=== PATIENT | female | born 1930 | race Caucasian/White ===

== ENCOUNTER 2017-11-02 08:32 | Inpatient (IN) ==
[2017-11-02] MEDS ORDERED: FentaNYL 100 MCG/2 ML INJECTION IVP ONE (08:44)
--- NOTE | 2017-11-02 08:45 | Emergency Department Report ---
General Adult HPI - General Stated complaint: fall Time Seen by Provider: 11/02/17 08:36 Source: patient, EMS, other ([place]. [place]) Mode of arrival: EMS Limitations: other (Dementia) - History of Present Illness HPI narrative: 87-year-old female presents to the emergency department with a chief complaint of an unwitnessed fall while getting out of bed landing on her right hip. Patient has a history of dementia and is at her baseline mental status be alert and oriented to self. She complains of pain in the right hip. Pain is moderate. Pain is dull. No radiation. Pain improves with rest and positioning. She denies any other injuries. No other complaints or associated symptoms. She was at her care facility when the incident occurred. Symptoms have been persistent in nature since onset. - Related Data Home Medications Medication Instructions Recorded Confirmed Potassium Chloride 10 meq PO DAILY #0 12/02/14 11/02/17 Aspirin [Aspirin EC] 81 mg PO DAILY 09/12/17 11/02/17 Cholecalciferol (Vitamin D3) 1,000 unit PO DAILY 09/12/17 11/02/17 [Vitamin D3] Fluticasone Nasal [place] [Flonase] 1 spray EA NOSTRIL DAILY 09/12/17 11/02/17 Furosemide [Lasix] 10 mg PO DAILY 09/12/17 11/02/17 Lisinopril [Prinivil] 5 mg PO BID 09/12/17 11/02/17 Polyvinyl Alcohol [Artificial 1 drop OP TID PRN 09/12/17 11/02/17 Tears] Vit C/E/Zn/Coppr/Lutein/Zeaxan 1 cap PO BID 09/12/17 11/02/17 [Preservision Areds 2 Softgel] Prilosec OTC (Omeprazole 20 mg PO DAILY PRN 09/25/17 11/02/17 magnesium) 20 mg tablet,delayed release Mirtazapine [Remeron] 7.5 mg PO HS 11/02/17 11/02/17 Ondansetron Tab [Zofran Po] 4 mg PO PRN 11/02/17 Vit A/Vit C/Vit E/Zinc/Copper 1 tab PO BID 11/02/17 11/02/17 [Preservision Areds Tablet] Allergies Allergy/AdvReac Type Severity Reaction Status Date / Time ceftriaxone [From Rocephin] Allergy Verified 11/02/17 09:28 diphenhydramine Allergy Verified 11/02/17 09:28 [From Benadryl] levofloxacin [From Levaquin] Allergy Verified 11/02/17 09:28 niacin Allergy Verified 11/02/17 09:28 Sulfa (Sulfonamide Allergy Verified 11/02/17 09:28 Antibiotics) Review of Systems Limitations: ROS unobtainable due to patient's medical condition [facility] Patient Stated Medical History Dementia Yes Macular Degeneration Yes Cardiac Arrhythmia Yes Congestive Heart Failure Yes Hypertension Yes Other Cardiology Yes: hyperlipidemia, cardiomegaly Pneumonia Yes Other Yes: disorder of kidney and ureter Anemia Yes Depression Yes: [facility] Medical History (Last Reviewed 08/26/17 @ 09:05 by BOGDAN Mensah) Dementia with behavioral disturbance (Chronic Medical) Iron deficiency anemia (Chronic Medical) Allergic rhinitis (Chronic Medical) LVH (left ventricular hypertrophy) (Chronic Medical) Hypertension (Chronic Medical) Acute cystitis without hematuria (Acute Medical) 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 Left ear surgery. [facility] IOLI 2010 Family History: Family History (Last Reviewed 08/26/17 @ 09:05 by BOGDAN Mensah) Father , CAD - 60 Coronary artery disease Mother , 69 - Diabetes Diabetes - Social History Smoking status: Never smoker Substance use type: does not use Alcohol intake frequency: does not drink Physical Exam - Limitations Limitations: other (dementia) - General General appearance: alert, in no apparent distress - Normal Exams: Head:: Normocephalic without trauma Eyes:: Pupils are PERRLA w/ EOMI, No scleral icterus, irritation, or foreign bodies noted ENMT:: No facial trauma, nasal exudates, pharyngeal erythema, or exudates are noted Dental: No fractured, loose, or missing teeth noted Neck:: Full range of motion (no midline tenderness or deformity of the cervical spine.), without adenopathy, JVD, bruits or thyromegaly Chest/Respirations:: Clear all brooks, with good airflow, and symmetry bilaterally Cardiovascular:: Regular rate and rhythm, without murmur or gallop, Pulses 2+ all extremities, capillary refill, <2 seconds all extremities Abdomen:: Bowel sounds positive, soft, non-tender, non-distended, no hepatosplenomegaly, masses or bruits noted Lymphatic:: No lymphadenopathy, or lymphedema noted Musculoskeletal:: No tenderness (R Hip - generalized tenderness to palpation. Decreased range of motion secondary to pain. Pulses intact. Sensation intact. Capillary refill less than 2. No erythema or edema. No other tenderness in the left lower extremity. All other extremities are unremarkable.), or deformity noted (back no midline tenderness or deformity to the thoracic/ lumbar spine. ), good range of motion, all extremities Integumentary:: No rashes, hives, or bruising noted, hair and nails, without abnormality Neurological:: Patient is alert (alert and oriented times one. No focal deficit. At baseline mental status.) Course Vital Signs Temperature 98.0 F 11/02/17 08:32 Pulse Rate 85 11/02/17 08:32 Respiratory Rate 18 11/02/17 08:32 Blood Pressure 216/100 H 11/02/17 08:32 Pulse Oximetry 93 11/02/17 08:32 Temperature 97.3 F 11/02/17 10:47 Pulse Rate 92 11/02/17 12:38 Respiratory Rate 16 11/02/17 11:07 Blood Pressure 204/92 H 11/02/17 11:07 Pulse Oximetry 97 11/02/17 11:07 Medical Decision Making - [facility] Narrative Medical decision making narrative: Labs / imaging were reviewed in detail with the patient and family and questions are answered. Patient was given analgesic pain medication within 1 hour of arrival to the emergency Department. Patient has a subcapital femoral neck fracture on the right. Patient is discussed with Dr. Alvarado orthopedic surgery who recommends making the patient nothing by mouth admission to the hospitalist service. Patient is discussed with Dr. Guallpa from the hospitalist service who agrees to accept the patient to her service. No further orders from accepting or consulting physicians were in agreement with the current plan of management. Patient is admitted to the hospital in improved condition. - Differential Diagnosis sprain, strain, fracture, dislocation, contusion - Lab Data Result diagrams: 11/02/17 08:55 11/02/17 08:55 Lab Results 11/02/17 11/02/17 11/02/17 Range/Units 08:54 08:55 08:55 WBC 6.3 (4.5-11.0) T/MM3 RBC 4.41 (4.00-5.20) M/MM3 Hgb 12.0 (12-16) GM/DL Hct 39.2 (36-46) % MCV 88.9 (80-100) UM3 MCH 27.2 (26-34) UUG MCHC 30.6 L (31-37) GM/DL RDW Std Deviation 45.3 (36.9-50.2) FL Plt Count 208 (130-400) T/MM3 MPV 10.4 (9.4-12.4) UM3 Immature Gran % (Auto) 0.8 H (0.0-0.5) % Neut % (Auto) 73.0 H (33-66) % Lymph % (Auto) 17.4 L (23-45) % [place] % (Auto) 5.9 (0-9.0) % Eos % (Auto) 2.1 (0-4) % Baso % (Auto) 0.8 (0-2) % Neut # (Auto) 4.6 (1.8-7.7) T/MM3 Lymph # (Auto) 1.1 (1-4.8) T/MM3 [place] # (Auto) 0.4 (0-0.8) T/MM3 Eos # (Auto) 0.1 (0-0.5) T/MM3 Baso # (Auto) 0.1 (0-0.2) T/MM3 Abs Immat Gran (auto) 0.05 H (0.00-0.03) T/MM3 Turbidity < 20 (0-20) Sodium 147 H (134-144) MEQ/L Potassium 4.0 (3.6-5) MEQ/L Chloride 107 (98-107) MEQ/L Carbon Dioxide 32 H (22-30) MEQ/L Anion Gap 8 (5-15) MEQ/L BUN 27.0 H (7-17) MG/DL Creatinine 1.0 (0.7-1.2) MG/DL GFR Calculation 53 BUN/Creatinine Ratio 27 H (6-26) RATIO Glucose 81 (65-110) MG/DL Calculated Osmolality 286 H (261-280) MOSM/KG Calcium 9.2 (8.4-10.2) MG/DL Total Bilirubin 0.30 (0.20-1.30) MG/DL Icterus Index < 2 (0-7) AST 26 (14-36) U/L ALT 22 (9-52) U/L Alkaline Phosphatase 67 (38-126) U/L Troponin I < 0.012 (0-0.12) ng/ml Total Protein 7.3 (6.3-8.2) G/DL Albumin 4.0 (3.5-5.0) G/DL Globulin 3.3 (2.4-3.6) G/DL Albumin/Globulin Ratio 1.2 (1.1-2.2) RATIO Specimen Hemolysis < 15 (0-25) Ur Collection Type Urine, void-cc/notcc Urine Color Yellow (YELLOW) Urine Clarity Clear Urine pH 7.0 (5.0-8.0) Ur Specific [place] 1.015 (1.015-1.025) Urine Protein Negative (NEGATIVE) Urine Glucose (UA) Negative (NEGATIVE) Urine Ketones Negative (NEGATIVE) Urine Occult Blood Negative (NEGATIVE) Urine Nitrate Negative (NEGATIVE) Urine Bilirubin Negative (NEGATIVE) Urine Urobilinogen 0.2 (NORMAL) EU/DL Ur Leukocyte Esterase Negative (NEGATIVE) Urinalysis Comment Microscopic not ind. - Radiology Data CT Head / C-spine: No acute processes. CT PELVIS: Right subcapital femoral neck fracture. Chest x-ray: No acute processes. Similar to comparison exam. - EKG Data EKG #1 EKG results narrative: Sinus rhythm with sinus arrhythmia. 64 bpm. No STEMI. Disposition Clinical Impression: Hip fracture requiring operative repair Qualifiers: Encounter type: initial encounter Fracture type: closed Laterality: right Qualified Code(s): S72.001A - Fracture of unspecified part of neck of right femur, initial encounter for closed fracture Disposition: 02 To [facility] Acute Care Condition: Stable Time of Disposition: 10:30 (Admit. Dr. Guallpa. ) - Seen By: physician
[2017-11-02] MEDS ORDERED: SALINE FLUSH 10ml SYRINGE IVF PRN (08:58)
[2017-11-02] MEDS ORDERED: FentaNYL 250 MCG/5 ML INJECTION IVP ONE (10:41)
[2017-11-02] MEDS ORDERED: ONDANSETRON 4 MG/2 ML INJECTION IVP PRN (11:29)
[2017-11-02] MEDS ORDERED: MORPHINE SULFATE 4mg INJECTION IVP PRN (11:29)
[2017-11-02] MEDS ORDERED: NS 1,000 ML IV SCH (11:30)
--- NOTE | 2017-11-02 12:29 | History & Physical Report ---
History of Present Illness Date: 11/02/17 Chief complaint: right hip fracture, fall HPI: Farnaz Brooke is a pleasantly confused 87-year-old female patient of Dr. Kieran Ocampo who has a known history of dementia. Due to her dementia, she is a poor historian. Prior medical records including ED records, EMS reports, PCP notes and nursing notes were thoroughly reviewed and contributed to her history. Her son is present at the bedside on exam and also contributes to her history. She currently resides at [facility] and sustained and unwitnessed fall this morning around 0730. She has chronic gait instability and is typically a 2 person assist. It is believed that she attempted to stand up on her own resulting in a fall and landed on her right side. Nursing reportedly heard her fall and found her on the floor with her walker nearby and on its side. She was unable to recall the fall and does not know if she hit her head or loss consciousness, but confusion and memory loss are not abnormal for her. She complained of pain but when asked where, she stated, "I don't know ". She denies any current headache, changes in vision, chest pain, shortness of breath, abdominal pain, nausea, vomiting or difficulty urinating. EMS transported to her [facility] for further evaluation. Upon arrival to the ED, blood pressure was elevated at 216/100. She has a known history of hypertension and it is believed that she had not received her morning medications prior to being assessed. Her blood pressure improved after receiving a total of 62.5 mcg of fentanyl for pain control. Imaging was obtained and revealed a right subcapital femoral neck fracture. Dr. Alvarado was consulted and recommended hospitalist admit and consult ortho. Dr. Guallpa was consulted and accepted her into inpatient status for further evaluation, IV pain control and surgical evaluation with anticipated surgical repair this afternoon. Her length of stay is expected to exceed more than 2 over nights. Labs in the ED were relatively unremarkable with the exception of hypernatremia (Na 147). UA was negative as well troponin. EKG revealed sinus arrhythmia with a rate of 64. CXR was reviewed by myself and revealed cardiomegaly without obvious focal infiltrate. Given her unwitnessed fall and possible head injury, CT head and C-spine were obtained and revealed no acute changes or fractures with chronic sinus disease and C4/5 and T1/2 listhesis noted. Review of Systems ROS unobtainable: due to mental status - Constitutional Constitutional: Present: chills (patient actively shaking on exam due to chills) , weakness. Absent: fever(s) - EENMT Eyes: Present: dry eye. Absent: photophobia Ears: Present: other (Hard of hearing; hearing loss left ear.). Absent: ear pain Nose: Absent: nosebleeds Mouth/Throat: Present: dry mouth. Absent: sore throat, sores, changes in swallowing - Cardiovascular Cardiovascular: Present: syncope (unknown), edema. Absent: chest pain, palpitations, dyspnea on exertion Vascular: Present: pedal edema. Absent: pallor of an extermity - Respiratory Respiratory: Present: cough. Absent: dyspnea, dyspnea on exertion, wheezing - Gastrointestinal Gastrointestinal: Absent: abdominal pain, diarrhea, nausea, vomiting - Genitourinary Genitourinary: Absent: dysuria, hematuria Menstruation: post menopausal - Musculoskeletal Musculoskeletal: Present: abnormal gait, deformity (right hip), limited range of motion (right leg), muscle weakness (generalized, chronic.) - Integumentary/Breasts Integumentary: Absent: rash, wounds - Neurological Neurological: Present: abnormal gait, confusion, frequent falls, memory loss, weakness (generalized). 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 Hypertension. Hyperlipidemia. LVH and cardiomegaly. CHF, unspecified. GERD. Iron deficiency anemia. Allergic rhinitis. 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 Macular degeneration. Chronic sinusitis. Generalized weakness. Gait instability - 2 person assist at baseline with walker. History of frequent falls. History of pneumonia. Surgical History: Tonsillectomy. Left ear surgery. Bilateral IOLI-2010. Family History Updates: Father - age 60 - CAD. Mother - age 69 - Diabetes. Son - alive age 59 - history of colon cancer, in remission. - Social History Smoking status: Never smoker Substance use type: does not use Alcohol intake frequency: does not drink Housing: [facility]) Household members: none () Current occupational status: retired Current residence: [facility] ([facility]) Social history: PCP - Dr. Ocampo. Medications Home Medications Medication Instructions Recorded Confirmed Type Potassium Chloride 10 meq PO DAILY #0 12/02/14 11/02/17 History Aspirin [Aspirin EC] 81 mg PO DAILY 09/12/17 11/02/17 History Cholecalciferol (Vitamin D3) 1,000 unit PO DAILY 09/12/17 11/02/17 History [Vitamin D3] Fluticasone Nasal [place] [Flonase] 1 spray EA NOSTRIL DAILY 09/12/17 11/02/17 History Furosemide [Lasix] 10 mg PO DAILY 09/12/17 11/02/17 History Lisinopril [Prinivil] 5 mg PO BID 09/12/17 11/02/17 History Polyvinyl Alcohol [Artificial 1 drop OP TID PRN 09/12/17 11/02/17 History Tears] Vit C/E/Zn/Coppr/Lutein/Zeaxan 1 cap PO BID 09/12/17 11/02/17 History [Preservision Areds 2 Softgel] Prilosec OTC (Omeprazole 20 mg PO DAILY PRN 09/25/17 11/02/17 History magnesium) 20 mg tablet,delayed release Mirtazapine [Remeron] 7.5 mg PO HS 11/02/17 11/02/17 History Ondansetron Tab [Zofran Po] 4 mg PO PRN 11/02/17 History Vit A/Vit C/Vit E/Zinc/Copper 1 tab PO BID 11/02/17 11/02/17 History [Preservision Areds Tablet] Allergies Allergy/AdvReac Type Severity Reaction Status Date / Time ceftriaxone [From Rocephin] Allergy Verified 11/02/17 09:28 diphenhydramine Allergy Verified 11/02/17 09:28 [From Benadryl] levofloxacin [From Levaquin] Allergy Verified 11/02/17 09:28 niacin Allergy Verified 11/02/17 09:28 Sulfa (Sulfonamide Allergy Verified 11/02/17 09:28 Antibiotics) Exam Vital Signs: Temperature 98.0 F 11/02/17 08:32 Pulse Rate 74 11/02/17 11:07 Respiratory Rate 16 02/11/18 11:07 Blood Pressure 204/92 H 11/02/17 11:07 Pulse Oximetry 97 11/02/17 11:07 Telemetry Rhythm: Sinus Dysrhythmia Comments: Patient is seen immediately upon her arrival to her room, #[id number], with her son at the bedside. She complains of pain but is unable to identify where. Exam is limited due to the patient's dementia. - Constitutional Present: no acute distress, well nourished, well developed, thin, cooperative - Routine HEENT Exam Head: Present: normocephalic, atraumatic. Absent: abrasion, laceration, hematoma Eye: Present: PERRL. Absent: conjunctival icterus ENT: Present: mucous membranes dry, oropharynx clear Comments: slightly hard of hearing. - Routine Neck Exam Present: supple, full ROM, trachea midline. Absent: tenderness - Routine Chest/Breast/Axilla Exam Chest wall: Absent: tenderness, pacemaker - Routine Respiratory Exam Present: decreased breath sounds, crackles (left basilar). Absent: accessory muscle use, dyspnea, respiratory distress, wheezes Comments: Oxygen was placed prior to arrival in room after patient received fentanyl for pain control. Currently breathing easily on room air without distress. Nursing noted occasional cough which family reports is new. - Routine Cardiovascular Exam Present: S1, S2, irregular rhythm - Routine Abdominal Exam Present: soft, normoactive bowel sounds, non distended, non tender. Absent: rebound, guarding - Routine Extremities Exam Present: edema (trace-1+ bilaterally), pulses intact Comments: tenderness to right hip with movement; limited ROM to right leg due to pain; N/ V intact. - Routine Back/Spine/Pelvis Exam Back/Spine: Absent: vertebral tenderness Comments: limited exam due to pain with ROM to her right hip. - Routine Skin Exam Present: intact, dry, warm. Absent: jaundice Comments: afebrile; patient noted to be shaking with chills on exam which improved with warm blanket as room was cool. - Routine Neurological Exam Present: alert (orientated to person only.), moving all extremities, hearing grossly intact, normal speech. Absent: oriented X3, sensory deficit, hemineglect, facial asymmetry - Routine Psychiatric Exam Present: cooperative Comments: confused, at baseline per family. Results - Labs CBC & Chem 7: 11/02/17 08:55 11/02/17 08:55 Assessment and Plan (1) Closed subcapital fracture of right femur Current visit: Yes Status: Acute (2) Unwitnessed fall Current visit: Yes Status: Acute (3) Hypernatremia Current visit: Yes Status: Acute Assessment and Plan: Assessment: 87-year-old pleasantly confused patient of Dr. Ocampo from [facility] who was admitted to Dr. Guallpa after being evaluated in the ED following an unwitnessed fall, resulting in a right subcapital femoral neck fracture and anticipated to under repair on 11/03/[address] Alvarado. Acute Medical Conditions: Right subcapital femoral neck fracture, acute - present on admission. Unwitnessed fall with possible head injury, acute. Hypernatremia (Na 147), acute - present on admission. 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 Hypertension. Hyperlipidemia. LVH and cardiomegaly. CHF, unspecified. GERD. Iron deficiency anemia. Allergic rhinitis. 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 Macular degeneration. Chronic sinusitis. Generalized weakness. Gait instability - 2 person assist at baseline with walker. History of frequent falls. History of pneumonia. Plan - 11/02/17 (Admission). Admit patient to inpatient to Dr. Guallpa for medical management of chronic conditions. Dr. Alvarado was consulted through the ED for orthopedic evaluation. Anticipate surgical repair of hip fracture on 11/03/17. Extensive review of records including medications from [facility] was performed. Will continue home medications. Given patient had unwitnessed fall with possible head injury, CT head and neck were obtained in ED and revealed no acute changes. Uncontrolled blood pressure in ED at 216/100 - unsure if patient received home lisinopril prior to arrival. Blood pressure improved with pain control. Continue to monitor blood pressure closely and will resume home lisinopril, Lasix and KCl. Monitor cardiac function closely with continuous pulse ox on telemetry given remote possibility of syncope. Fall more likely mechanical and secondary to poor safety awareness due to dementia and gait instability. Patient will need close supervision given dementia and poor safety awareness as she is at high risk for additional falls. Morphine 1-2mg PRN pain control. Monitor oximetry closely as she was noted to desat while in ED after receiving fentanyl. Oxygen as needed to maintain SAO2 > 90%, weaning as able. Patient does not use oxygen at home. Cough noted on admission. Patient remains afebrile and WBC stable (WBC 6.3). CXR unremarkable without focal infiltrate. Obtain respiratory panel and maintain respiratory precautions until resulted. Encourage incentive spirometry for pulmonary toileting. Patient on regular diet at [facility]. Will continue during hospitalization and make NPO after midnight on 11/03/11 in anticipation of surgery on 11/03/11. NS 100cc/ hr for hydration as clinical vascularly dry on exam with hypernatremia (Na 147). Patient receiving mighty shakes at [facility] TID. Will consult dietary for additional recommendations and continue dietary supplementation. Recheck CBC and BMP in AM to monitor blood counts, electrolytes and renal function. History of iron deficiency anemia. Hgb stable on admission (12.0). Will type and screen in AM in anticipation of surgery. Upon discharge, patient's care will be returned to her PCP, Dr. Ocampo. Patient wishes to be a DNR code status with paperwork on the chart. DVT Prophylaxis: SCD's GI Prophylaxis: Protonix - Time spent with patient Time with patient PN: 70 minutes - Physician Narrative Physician: Phyllis Guallpa MD Narrative: Date: 11/02/17 Time: 4:[address] Guallpa I reviewed this chart, the patient history, and the MINING ENGINEER[employer]IST's/PA's documented findings as above. We discussed and formulated the assessment and plan as above with the additions below. Patient was seen this afternoon in her room accompanied by members including her son JOHN. Patient has a history of dementia and lives in a fci. She had an unwitnessed fall today, but the nurse heard her fall. Taken to the emergency room and found to have a right subcapital fracture. She is narcotics and is mildly somnolent and confused. She is confused at baseline. She complains of some hip pain now. She denies any other pain. She denies shortness of breath. She is on 1 L oxygen sat 97%. She is not a good historian due to acute on chronic condition. On exam she is drowsy but arousable. HEENT reveals sclerae. Oropharynx is moist , supple. Chest is clear to auscultation anteriorly. Cardiovascular reveals a regular rate. Lungs sounds. Extremities reveal no edema. Skin is warm and dry. Comprehensive metabolic profile was essentially normal other than sodium of 147. Troponin is normal. UA is normal. CBC is essentially normal. Respiratory viral panel was positive for wright virus. EKG reveals sinus rhythm with sinus arrhythmia and probable LVH. She does carry a history of LVH. Impression Right subcapital hip fracture Dementia with some acute encephalopathy likely secondary to pain medication History of hypertension with markedly elevated blood pressure, likely secondary to pain-improved with Protonix Acute wright virus upper respiratory infection Chronic sinusitis Chronic CHF with LVH Plan Dr. Alvarado was consulted and plans on surgery tomorrow afternoon. Patient is DO NOT RESUSCITATE per family. They state she is ready to go. We'll change IV fluids to half-normal saline with 20 of potassium to run at 50 an hour Repeat CBC and basic metabolic profile tomorrow. Discussed with family the patient is at increased risk for perioperative complications with her advanced age, dementia acute respiratory infection. They state they do understand and states she is "ready to go". They would like to proceed with surgery for pain control, and hopefully to get her previous level of activity. Hospital Course Summary Disclaimer: The visit summary below is not to be considered part of the above Progress Note. Hospital Course: Plan - 11/02/17 (Admission). Admit patient to inpatient to Dr. Guallpa for medical management of chronic conditions. Dr. Alvarado was consulted through the ED for orthopedic evaluation. Anticipate surgical repair of hip fracture on 11/03/17. Extensive review of records including medications from [facility] was performed. Will continue home medications. Given patient had unwitnessed fall with possible head injury, CT head and neck were obtained in ED and revealed no acute changes. Uncontrolled blood pressure in ED at 216/100 - unsure if patient received home lisinopril prior to arrival. Blood pressure improved with pain control. Continue to monitor blood pressure closely and will resume home lisinopril, Lasix and KCl. Monitor cardiac function closely with continuous pulse ox on telemetry given remote possibility of syncope. Fall more likely mechanical and secondary to poor safety awareness due to dementia and gait instability. Patient will need close supervision given dementia and poor safety awareness as she is at high risk for additional falls. Morphine 1-2mg PRN pain control. Monitor oximetry closely as she was noted to desat while in ED after receiving fentanyl. Oxygen as needed to maintain SAO2 > 90%, weaning as able. Patient does not use oxygen at home. Cough noted on admission. Patient remains afebrile and WBC stable (WBC 6.3). CXR unremarkable without focal infiltrate. Obtain respiratory panel and maintain respiratory precautions until resulted. Encourage incentive spirometry for pulmonary toileting. Patient on regular diet at [facility]. Will continue during hospitalization and make NPO after midnight on 11/03/11 in anticipation of surgery on 11/03/11. NS 100cc/ hr for hydration as clinical vascularly dry on exam with hypernatremia (Na 147). Patient receiving mighty shakes at [facility] T[facility]. Will consult dietary for additional recommendations and continue dietary supplementation. Recheck CBC and BMP in AM to monitor blood counts, electrolytes and renal function. History of iron deficiency anemia. Hgb stable on admission (12.0). Will type and screen in AM in anticipation of surgery. Upon discharge, patient's care will be returned to her PCP, Dr. Ocampo. Patient wishes to be a DNR code status with paperwork on the chart.
[2017-11-02] MEDS ORDERED: SYSTANE EYE DROPS 0.7ml EACH EYE PRN (13:09)
[2017-11-02] MEDS: FLUTICASONE NASAL SPRAY 50mcg EA NOSTRIL SCH (14:45)
[2017-11-02] MEDS: PANTOPRAZOLE 40 MG INJECTION IVP SCH (14:46)
[2017-11-02] MEDS: ASPIRIN *EC* 81 MG TABLET PO SCH (14:46)
[2017-11-02] MEDS: LISINOPRIL 5 MG TABLET PO SCH (15:13)
[2017-11-02] MEDS: FUROSEMIDE 20 MG TABLET PO SCH (15:13)
[2017-11-02] MEDS: MULTI-VIT + MINERAL (Opti-gen) TABLET PO SCH ×2 (15:13→20:03)
[2017-11-02] MEDS: MORPHINE SULFATE 2mg INJECTION IVP PRN ×3 (16:37→22:03)
[2017-11-02] MEDS: 1/2 NS with KCL 20mEq 1,000 ML IV SCH (18:19)
[2017-11-02] MEDS: MIRTAZAPINE 15 MG TABLET PO SCH (20:03)
[2017-11-02] MEDS: HALOPERIDOL 5 MG/ML INJECTION IVP PRN (23:08)
[2017-11-03] MEDS ORDERED: ACETAMINOPHEN 325 MG TABLET PO PRN (05:36)
[2017-11-03] MEDS: ACETAMINOPHEN 325 MG TABLET PO PRN (06:01)
--- NOTE | 2017-11-03 07:23 | XRay Report ---
Indication: Fall today with right hip pain PROCEDURE: XR pelvis w/ 2 view RT hip: Encounter: Initial Comparison: None Findings: Is a mildly displaced subcapital fracture of the right femoral neck. No additional acute fracture or dislocation seen. Mild bony demineralization. Mild degenerative change in the lower lumbar spine and left hip. Impression: Posttraumatic subcapital right femoral neck fracture. .
--- NOTE | 2017-11-03 07:24 | XRay Report ---
Indication: Hip fx PROCEDURE: XR chest 1V: Encounter: Initial Comparison: 09/12/2017 Findings: Persistent or recurrent hazy left basilar airspace opacity and small left effusion. Right lung is grossly clear. No pneumothorax. Heart size, pulmonary vascularity and mediastinal contours are stable. Degenerative change in the left shoulder. Impression: Stable appearance of the chest with left basilar atelectasis and fluid. .
--- NOTE | 2017-11-03 07:25 | CT Scan Report ---
Indication: R Hip Pain PROCEDURE: CT pelvis wo con: Encounter: Initial Comparison: None Technique: Axial noncontrast CT imaging through the pelvis with coronal and sagittal two-dimensional reformats. Automated Exposure Control and Iterative Reconstruction dose reducing techniques were utilized. Findings: Subcapital right femoral neck fracture mildly displaced. No additional acute fractures seen. Bony demineralization. Mild osteoarthritis in the left hip. Degenerative change in the facet joints of the visualized lower lumbar spine. Soft tissues of the pelvis are grossly unremarkable. No focal hematoma or fluid collection. Impression: Subcapital right femoral neck fracture. There is a preliminary report by [facility] [employer]. .
--- NOTE | 2017-11-03 07:25 | CT Scan Report ---
Indication: unwitnessed fall PROCEDURE: CT cervical spine wo con: Encounter: Initial Comparison: None Technique: Axial CT images through the cervical spine were performed without contrast. Coronal and sagittal reformatted images were also obtained. Automated Exposure Control and Iterative Reconstruction dose reducing techniques were utilized. FINDINGS: The alignment of the cervical spine shows minimal degenerative grade 1 anterolisthesis of C4 on C5 and C7 on T1. Multilevel degenerative changes are present. There is no evidence of acute fracture or subluxation of the cervical spine. The atlantoaxial articulation, dens, and upper cervical spine demonstrate no subluxation. The paraspinal soft tissues and spinal canal appear unremarkable. IMPRESSION: No acute traumatic abnormality of the cervical spine. There is a preliminary report by [facility]. .
--- NOTE | 2017-11-03 07:26 | CT Scan Report ---
Indication: unwitnessed fall PROCEDURE: CT head/brain wo con: Encounter: Initial Comparison: 09/12/2017 Technique: Axial CT images through the head were performed without contrast. Iterative Reconstruction dose reducing technique was utilized. FINDINGS: Moderate to severe generalized atrophy. The ventricles are of normal size, shape, and configuration for the patient's age. There is no evidence of acute intracranial hemorrhage, midline displacement, or mass effect. There are numerous areas of low attenuation in the white matter which most likely represent changes of chronic microvascular ischemia. The CT attenuation of the brain parenchyma is otherwise normal within the cerebellum, brain stem, and cerebral hemispheres. The tympanic cavities and mastoid air cells are free of appreciable disease. There are no definite fractures of the skull base, calvarium, or visualized portion of the midface. IMPRESSION: No CT evidence of acute traumatic intracranial injury. There is a preliminary report by [facility]. .
--- NOTE | 2017-11-03 08:39 | XRay Report ---
EXAM: XR chest 1V COMPARISON: 11/02/2017. HISTORY: fever, mild hypoxia . FINDINGS: The cardiomediastinal silhouette is within limits of normal. The pulmonary vascularity appears unremarkable. Ill-defined and linear opacity is seen at the left lung base which may be related to atelectasis resident than infiltrate. There is minimal blunting of the costophrenic angles. There is no evidence for a pneumothorax. Degenerative changes of the right shoulder is again noted. IMPRESSION: 1. Mild cardiomegaly. 2. Persistent left basilar atelectatic changes. [place] [facility] [facility] [place]
--- NOTE | 2017-11-03 08:42 | XRay Report ---
EXAM: XR lumbar spine 2-3V COMPARISON: None available. HISTORY: lumbar pain after fall . Fall yesterday FINDINGS: Three views of the lumbar spine were obtained. There is dextroconvex scoliosis of the lumbar spine. The lumbar vertebral bodies appear well aligned otherwise. Vertebral body heights are thought to be maintained. Endplate sclerosis and spurring and disc space narrowing is noted at L1-2 and L2-3 and L5-S1. There may be mild disc space narrowing and endplate sclerosis and spurring at the left L3-4 and L4-5 levels. The pedicles and spinous processes are intact and are well aligned. IMPRESSION: 1. Dextroconvex scoliosis. 2. Disc space narrowing and endplate sclerosis and spurring from L1-2 through L5-S1 as described above. 3. No definite evidence for acute compression fracture deformity is identified. LOCATION OF DICTATION: [facility] .
[2017-11-03 09:02] VITALS: BMI 22.2
[2017-11-03] MEDS: PANTOPRAZOLE 40 MG INJECTION IVP SCH (09:15)
[2017-11-03] MEDS: MULTI-VIT + MINERAL (Opti-gen) TABLET PO SCH ×2 (09:20→22:27)
[2017-11-03] MEDS: LISINOPRIL 5 MG TABLET PO SCH (09:20)
[2017-11-03] MEDS: FLUTICASONE NASAL SPRAY 50mcg EA NOSTRIL SCH (09:20)
[2017-11-03] MEDS: FUROSEMIDE 20 MG TABLET PO SCH (09:20)
--- NOTE | 2017-11-03 10:16 | Progress Note ---
- Date 11/03/17 Subjective: The patient was seen this morning in her room. Multiple family members were present. She was lying on her left side sleeping. Her family states she was agitated and in some pain last night and received Haldol and morphine last evening. They state she's been more comfortable since turning to her left side earlier this morning. She awakens to voice but does not attempt to answer questions at this time, she does appear groggy. She did have a fever up to 101.8 earlier this morning. On recheck was 100.1. She is too drowsy to answer any questions this morning. Objective Vital signs: Temperature 100.1 F 11/03/17 08:00 Pulse Rate 88 11/03/17 08:00 Respiratory Rate 17 11/03/17 08:00 Blood Pressure 128/56 11/03/17 08:00 Pulse Oximetry 97 11/03/17 08:00 Height/Weight/BMI: Height 1.57 m Weight 55.2 kg Body Mass Index 22.2 Comments: MAXIMUM TEMPERATURE 101.8, current temperature 100.1. Heart rate 88, blood pressure 120/56, respirations 17, O2 sat 97% on 1 L GEN-drowsy but arousable, unable to answer questions this morning, does not appear in distress. Breathing comfortably. No cough during my exam CV-regular rate and rhythm CHEST-clear to auscultation posteriorly ABD-soft, nontender with positive bowel sounds -Steven in place with good urine output EXT-no edema NEURO-drowsy, confused, has baseline dementia likely worsened with fever and morphine SKIN-warm and dry Results - Labs CBC & Chem 7: 11/03/17 04:40 11/03/17 04:40 Labs: Lactate was 0.7 Neutrophils 87%, bands 3% Microbiology Results: Microbiology 11/03/17 07:35 Peripheral/Iv Start Blood Culture - Preliminary Culture Initiated - Results Pending 11/03/17 07:33 Peripheral/Iv Start Blood Culture - Preliminary Culture Initiated - Results Pending - Impressions Chest x-ray on my read and per radiology shows mild cardiomegaly and a persistent left basilar atelectatic changes. Left basilar airspace opacity was present on admission and also on 09/12/2017 and is unchanged. Assessment and Plan (1) Closed subcapital fracture of right femur Current visit: Yes Status: Acute (2) Unwitnessed fall Current visit: Yes Status: Acute (3) Hypernatremia Current visit: Yes Status: Acute Assessment and Plan: Assessment: 87-year-old pleasantly confused patient of Dr. Ocampo from [facility] who was admitted to Dr. Guallpa after being evaluated in the ED following an unwitnessed fall, resulting in a right subcapital femoral neck fracture and anticipated to under repair on 11/03/[address] Alvarado. Acute Medical Conditions: Right subcapital femoral neck fracture, acute - present on admission. Unwitnessed fall with possible head injury, acute. 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 Hypertension. Hyperlipidemia. LVH and cardiomegaly. CHF, unspecified. GERD. Iron deficiency anemia. Allergic rhinitis. 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 Macular degeneration. Chronic sinusitis. Generalized weakness. Gait instability - 2 person assist at baseline with walker. History of frequent falls. History of pneumonia. Plan - 11/03/17 Patient had a fever today up to 101.8. This may be secondary to Zaldivar virus. Blood cultures were obtained and lactate was obtained and was 0.7. Repeat lactate is pending. Chest x-ray shows a persistent left basilar infiltrate/ atelectasis that was present in August 2017. On exam, lungs are clear. I do not think she has pneumonia at this time, her fever is likely secondary to Zaldivar virus. Urinalysis was normal yesterday. We'll continue to monitor closely. Continue cautious IV fluids. Continue Haldol if needed for agitation. Plan for surgery later today for hip fracture repair Blood pressure is better controlled today. Family updated this morning. DVT Prophylaxis: SCD's Resuscitation Status: Do Not Resuscitate - Time spent with patient Time with patient PN: 30 minutes - Physician Narrative Narrative: Date: 11/03/17 Time: 1013 Hospital Course Summary Disclaimer: The visit summary below is not to be considered part of the above Progress Note. Hospital Course: Plan - 11/02/17 (Admission). Admit patient to inpatient to Dr. Guallpa for medical management of chronic conditions. Dr. Alvarado was consulted through the ED for orthopedic evaluation. Anticipate surgical repair of hip fracture on 11/03/17. Extensive review of records including medications from [facility] was performed. Will continue home medications. Given patient had unwitnessed fall with possible head injury, CT head and neck were obtained in ED and revealed no acute changes. Uncontrolled blood pressure in ED at 216/100 - unsure if patient received home lisinopril prior to arrival. Blood pressure improved with pain control. Continue to monitor blood pressure closely and will resume home lisinopril, Lasix and KCl. Monitor cardiac function closely with continuous pulse ox on telemetry given remote possibility of syncope. Fall more likely mechanical and secondary to poor safety awareness due to dementia and gait instability. Patient will need close supervision given dementia and poor safety awareness as she is at high risk for additional falls. Morphine 1-2mg PRN pain control. Monitor oximetry closely as she was noted to desat while in ED after receiving fentanyl. Oxygen as needed to maintain SAO2 > 90%, weaning as able. Patient does not use oxygen at home. Cough noted on admission. Patient remains afebrile and WBC stable (WBC 6.3). CXR unremarkable without focal infiltrate. Obtain respiratory panel and maintain respiratory precautions until resulted. Encourage incentive spirometry for pulmonary toileting. Patient on regular diet at [facility]. Will continue during hospitalization and make NPO after midnight on 11/03/11 in anticipation of surgery on 11/03/11. NS 100cc/ hr for hydration as clinical vascularly dry on exam with hypernatremia (Na 147). Patient receiving mighty shakes at [facility] TID. Will consult dietary for additional recommendations and continue dietary supplementation. Recheck CBC and BMP in AM to monitor blood counts, electrolytes and renal function. History of iron deficiency anemia. Hgb stable on admission (12.0). Will type and screen in AM in anticipation of surgery. Upon discharge, patient's care will be returned to her PCP, Dr. Ocampo. Patient wishes to be a DNR code status with paperwork on the chart. Plan - 11/03/17 Patient had a fever today up to 101.8. This may be secondary to Zaldivar virus. Blood cultures were obtained and lactate was obtained and was 0.7. Repeat lactate is pending. Chest x-ray shows a persistent left basilar infiltrate/ atelectasis that was present in August 2017. On exam, lungs are clear. I do not think she has pneumonia at this time, her fever is likely secondary to Zaldivar virus. Urinalysis was normal yesterday. We'll continue to monitor closely. Continue cautious IV fluids. Continue Haldol if needed for agitation. Plan for surgery later today for hip fracture repair Blood pressure is better controlled today. Family updated this morning.
[2017-11-03] MEDS: MORPHINE SULFATE 2mg INJECTION IVP PRN ×2 (11:00→23:49)
[2017-11-03] MEDS: 1/2 NS with KCL 20mEq 1,000 ML IV SCH ×2 (13:00→18:52)
--- NOTE | 2017-11-03 13:51 | Orthopedic Consult Note ---
Orthopedic Consultation HPI - Consultation Info Consult Date: 11/03/17 Attending Physician: Phyllis Guallpa MD Consult Reason: fracture - History of Present Illness 87 yo lady who resides at [facility]. She sustained and unwitnessed fall this morning around 0730. She has chronic gait instability and is typically a 2 person assist. It is believed that she attempted to stand up on her own resulting in a fall and landed on her right side. CT scan and xrays confirm a subcapital fx of the right hip. She is admitted by the hospitalist service and we are consulted for medical management. Review of Systems ROS unobtainable: due to dementia, other (See Dr Guallpa's dictation.) [facility] Medical History (Last Reviewed 08/26/17 @ 09:05 by BOGDAN Mensah) Dementia with behavioral disturbance (Chronic Medical) Iron deficiency anemia (Chronic Medical) Allergic rhinitis (Chronic Medical) LVH (left ventricular hypertrophy) (Chronic Medical) Hypertension (Chronic Medical) Acute cystitis without hematuria (Acute Medical) 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 Left ear surgery. Bilateral IOLI-2010. Family History: Family History (Last Reviewed 08/26/17 @ 09:05 by BOGDAN Mensah) Father , CAD - 60 Coronary artery disease Mother , 69 - Diabetes Diabetes - Social History Smoking status: Never smoker Current residence: [facility] ([facility]) Medications Home Medications Medication Instructions Recorded Confirmed Type Potassium Chloride 10 meq PO DAILY #0 12/02/14 11/02/17 History Aspirin [Aspirin EC] 81 mg PO DAILY 09/12/17 11/02/17 History Cholecalciferol (Vitamin D3) 1,000 unit PO DAILY 09/12/17 11/02/17 History [Vitamin D3] Fluticasone Nasal [place] [Flonase] 1 spray EA NOSTRIL DAILY 09/12/17 11/02/17 History Furosemide [Lasix] 10 mg PO DAILY 09/12/17 11/02/17 History Lisinopril [Prinivil] 5 mg PO BID 09/12/17 11/02/17 History Polyvinyl Alcohol [Artificial 1 drop OP TID PRN 09/12/17 11/02/17 History Tears] Vit C/E/Zn/Coppr/Lutein/Zeaxan 1 cap PO BID 09/12/17 11/02/17 History [Preservision Areds 2 Softgel] Prilosec OTC (Omeprazole 20 mg PO DAILY PRN 09/25/17 11/02/17 History magnesium) 20 mg tablet,delayed release Mirtazapine [Remeron] 7.5 mg PO HS 11/02/17 11/02/17 History Ondansetron Tab [Zofran Po] 4 mg PO PRN 11/02/17 History Vit A/Vit C/Vit E/Zinc/Copper 1 tab PO BID 11/02/17 11/02/17 History [Preservision Areds Tablet] Allergies Allergy/AdvReac Type Severity Reaction Status Date / Time ceftriaxone [From Rocephin] Allergy Verified 11/03/17 06:23 diphenhydramine Allergy Verified 11/03/17 06:23 [From Benadryl] levofloxacin [From Levaquin] Allergy Verified 11/03/17 06:23 niacin Allergy Verified 11/03/17 06:23 Sulfa (Sulfonamide Allergy Verified 11/03/17 06:23 Antibiotics) Orthopedic Exam Vital signs: Temperature 97.3 F 11/03/17 12:15 Pulse Rate 90 11/03/17 12:15 Respiratory Rate 14 11/03/17 12:15 Blood Pressure 175/79 H 11/03/17 12:15 Pulse Oximetry 94 11/03/17 12:15 - Constitutional General Appearance: Present: alert. Absent: orientated x1 - Respiratory Exam Present: non-labored - Cardiovascular Exam Present: pedal pulses intact - Extremities Exam Present: edema (trace-1+ bilaterally), pulses intact. Absent: calf tenderness - Hip Exam right Hip Exam: Present: unequal leg length, tender over trochanter, abnormal rotation , painful PROM - Integumentary Exam Present: pink, warm, dry - Neurological Exam Present: no deficits - Psychiatric Exam Present: alert. Absent: oriented - Labs Result Diagrams: 11/03/17 04:40 11/03/17 04:40 Abnormal lab results 11/03/17 11/03/17 Range/Units 04:40 04:40 WBC 14.8 H D (4.5-11.0) T/MM3 Hgb 11.8 L (12-16) GM/DL Neutrophils % (Manual) 87.0 H (33-66) % Lymphocytes % (Manual) 6.0 L (23-45) % Neutrophils # (Manual) 12.9 H (1.8-7.7) T/MM3 Lymphocytes # (Manual) 0.9 L (1-4.8) T/MM3 BUN 19.0 H (7-17) MG/DL Glucose 115 H (65-110) MG/DL H & H 11/03/17 Range/Units 04:40 Hgb 11.8 L (12-16) GM/DL Hct 37.7 (36-46) % Impression and Recommendation (1) Closed subcapital fracture of right femur Current visit: Yes Qualifiers: Encounter type: initial encounter Qualified Code(s): S72.011A - Unspecified intracapsular fracture of right femur, initial encounter for closed fracture Status: Acute Dr Alvarado has met with the pt and family to discuss the nature of her injury and recommended treatment. Will plan on a zana arthroplasty of the right hip. Risk vs benefits, possible complications and expected course were all discussed. Stay expected to be > 2 midnights. Hospital Course Summary Disclaimer: The visit summary below is not to be considered part of the above Progress Note. Hospital Course: Plan - 11/02/17 (Admission). Admit patient to inpatient to Dr. Guallpa for medical management of chronic conditions. Dr. Alvarado was consulted through the ED for orthopedic evaluation. Anticipate surgical repair of hip fracture on 11/03/17. Extensive review of records including medications from [facility] was performed. Will continue home medications. Given patient had unwitnessed fall with possible head injury, CT head and neck were obtained in ED and revealed no acute changes. Uncontrolled blood pressure in ED at 216/100 - unsure if patient received home lisinopril prior to arrival. Blood pressure improved with pain control. Continue to monitor blood pressure closely and will resume home lisinopril, Lasix and KCl. Monitor cardiac function closely with continuous pulse ox on telemetry given remote possibility of syncope. Fall more likely mechanical and secondary to poor safety awareness due to dementia and gait instability. Patient will need close supervision given dementia and poor safety awareness as she is at high risk for additional falls. Morphine 1-2mg PRN pain control. Monitor oximetry closely as she was noted to desat while in ED after receiving fentanyl. Oxygen as needed to maintain SAO2 > 90%, weaning as able. Patient does not use oxygen at home. Cough noted on admission. Patient remains afebrile and WBC stable (WBC 6.3). CXR unremarkable without focal infiltrate. Obtain respiratory panel and maintain respiratory precautions until resulted. Encourage incentive spirometry for pulmonary toileting. Patient on regular diet at [facility]. Will continue during hospitalization and make NPO after midnight on 11/03/11 in anticipation of surgery on 11/03/11. NS 100cc/ hr for hydration as clinical vascularly dry on exam with hypernatremia (Na 147). Patient receiving mighty shakes at [facility]. Will consult dietary for additional recommendations and continue dietary supplementation. Recheck CBC and BMP in AM to monitor blood counts, electrolytes and renal function. History of iron deficiency anemia. Hgb stable on admission (12.0). Will type and screen in AM in anticipation of surgery. Upon discharge, patient's care will be returned to her PCP, Dr. Ocampo. Patient wishes to be a DNR code status with paperwork on the chart. Plan - 11/03/17 Patient had a fever today up to 101.8. This may be secondary to Zaldivar virus. Blood cultures were obtained and lactate was obtained and was 0.7. Repeat lactate is pending. Chest x-ray shows a persistent left basilar infiltrate/ atelectasis that was present in August 2017. On exam, lungs are clear. I do not think she has pneumonia at this time, her fever is likely secondary to Zaldivar virus. Urinalysis was normal yesterday. We'll continue to monitor closely. Continue cautious IV fluids. Continue Haldol if needed for agitation. Plan for surgery later today for hip fracture repair Blood pressure is better controlled today. Family updated this morning.
--- NOTE | 2017-11-03 15:49 | Anesthesia Preoperative Report ---
Anesthesia Preoperative Record - Date and Time Date: 11/03/17 Preoperative Diagnosis: Right hip fracture,Fall Proposed Procedure: right hip arthroplasty NPO Since Date: 11/02/17 NPO Since Time: 23:00 Allergies/Adverse Reactions: Allergies Allergy/AdvReac Type Severity Reaction Status Date / Time ceftriaxone [From Rocephin] Allergy Verified 11/03/17 06:23 diphenhydramine Allergy Verified 11/03/17 06:23 [From Benadryl] levofloxacin [From Levaquin] Allergy Verified 11/03/17 06:23 niacin Allergy Verified 11/03/17 06:23 Sulfa (Sulfonamide Allergy Verified 11/03/17 06:23 Antibiotics) - Vital Signs Vital Signs: Temperature 97.3 F 11/03/17 12:15 Pulse Rate 90 11/03/17 12:15 Respiratory Rate 14 11/03/17 12:15 Blood Pressure 175/79 H 11/03/17 12:15 Pulse Oximetry 94 11/03/17 12:15 Height and Weight: Height 1.57 m Weight 55.2 kg Body Mass Index 22.2 - Medications Inpatient Medications: Current Medications Acetaminophen (Tylenol) 650 mg PO PRN PRN PRN Reason: Fever Last Admin: 11/03/17 06:01 Dose: 650 mg Aspirin (Ecotrin) 81 mg PO DAILY [facility] Last Admin: 11/02/17 14:46 Dose: 81 mg Cholecalciferol (Vit. D-3) 1,000 unit PO DAILY [facility] Last Admin: 11/03/17 09:19 Dose: Not Given Fluticasone Propionate (Flonase) 1 spray EA NOSTRIL DAILY [facility] Last Admin: 11/03/17 09:20 Dose: 1 spray Furosemide (Lasix) 10 mg PO DAILY [facility] Last Admin: 11/03/17 09:20 Dose: Not Given Haloperidol Lactate (Haldol) 0.5 - 1 mg IVP Q4H PRN PRN Reason: Agitation/Restlessness Last Admin: 11/02/17 23:08 Dose: 1 mg Potassium Chloride/Sodium Chloride (1/2 Ns With Kcl 20meq) 1,000 mls @ 50 mls/ hr IV .Q20H [facility] Last Admin: 11/02/17 18:19 Dose: 50 mls/hr Lisinopril (Prinivil) 5 mg PO DAILY [facility] Last Admin: 11/03/17 09:20 Dose: Not Given Mirtazapine (Remeron) 7.5 mg PO HS [facility] Last Admin: 11/02/17 20:03 Dose: 7.5 mg Morphine Sulfate (Morphine Sulfate Inj) 1 - 2 mg IVP Q2H PRN PRN Reason: Pain Last Admin: 11/03/17 11:00 Dose: 2 mg Multivitamins/Minerals (Vision) 1 tab PO BID [facility] Last Admin: 11/03/17 09:20 Dose: Not Given Ondansetron HCl (Zofran) 4 mg IVP Q6H PRN PRN Reason: Nausea &/or vomiting Pantoprazole Sodium (Protonix Iv) 40 mg IVP DAILY [facility] Last Admin: 11/03/17 09:15 Dose: 40 mg Polyethyl Glycol/Propylene Glycol (Systane Eye Drops) 1 drop EACH EYE TID PRN PRN Reason: PRN orders Last Admin: 11/02/17 14:46 Dose: 1 drop Potassium Chloride (Micro-K 10 Meq Capsule) 10 meq PO WB [facility] Last Admin: 11/03/17 09:19 Dose: Not Given Sodium Chloride (Iv Flush) 10 - 80 ml IVF PRN PRN PRN Reason: Flushing Last Admin: 11/02/17 09:16 Dose: 10 ml Home Medications: Home Medications Medication Instructions Recorded Confirmed Type Potassium Chloride 10 meq PO DAILY #0 12/02/14 11/02/17 History Aspirin [Aspirin EC] 81 mg PO DAILY 09/12/17 11/02/17 History Cholecalciferol (Vitamin D3) 1,000 unit PO DAILY 09/12/17 11/02/17 History [Vitamin D3] Fluticasone Nasal [place] [Flonase] 1 spray EA NOSTRIL DAILY 09/12/17 11/02/17 History Furosemide [Lasix] 10 mg PO DAILY 09/12/17 11/02/17 History Lisinopril [Prinivil] 5 mg PO BID 09/12/17 11/02/17 History Polyvinyl Alcohol [Artificial 1 drop OP TID PRN 09/12/17 11/02/17 History Tears] Vit C/E/Zn/Coppr/Lutein/Zeaxan 1 cap PO BID 09/12/17 11/02/17 History [Preservision Areds 2 Softgel] Prilosec OTC (Omeprazole 20 mg PO DAILY PRN 09/25/17 11/02/17 History magnesium) 20 mg tablet,delayed release Mirtazapine [Remeron] 7.5 mg PO HS 11/02/17 11/02/17 History Ondansetron Tab [Zofran Po] 4 mg PO PRN 11/02/17 History Vit A/Vit C/Vit E/Zinc/Copper 1 tab PO BID 11/02/17 11/02/17 History [Preservision Areds Tablet] Is Patient on Beta Lali?: No - Medical History Respiratory: Reports: Pneumonia (present) Cardiovascular: Reports: Arrhythmia, Congestive Heart Failure, Hypertension, Other (hyperlipidemia, cardiomegaly) Neuro/Musculoskeletal: Reports: Depression (MDD), Muscle Weakness (generalized, falls), Other (dementia ) - Surgical History Anesthesia Reactions: None Hx Family Anesthesia Reaction: No - Social History Smoking Status: Never smoker Substance Use Type: does not use Alcohol Intake Frequency: does not drink - Pertinent Findings Laboratory: CBC and BMP 11/03/17 04:40 11/03/17 04:40 BMP 11/03/17 04:40 Sodium 140 D Potassium 4.1 Chloride 104 Carbon Dioxide 29 BUN 19.0 H Creatinine 0.9 Glucose 115 H Calcium 8.8 EKG: Sinus Rhythm - Physical Exam Respiratory Exam: Present: lungs clear, bilateral breath sounds equal Cardiovascular Exam: Present: regular rate and rhythm - Airway Assessment Mallampati Score: I TMD: 3 Fingerbreadths Neck Extension: good Overall Assessment: no airway concerns - ASA ASA Score: 4 - Plan Anesthesia: General Inhalation Gases Regional/Trunk Block: Spinal - Discussion Discussion: Discussed risks/options/alternatives of anesthesia and questions answered. Patient consents. Nursing pain assessment noted. Attestation Statement: Prior to the delivery of any anesthetic medication, I examined the patient, developed the plan, obtained the patient's consent and discussed the risk and benefits of the procedure with the patient/guardian. - Additional Information Comments: family aware pt is very high risk but after speaking with Dr. Alvarado they feel the risk are less having the surgery rather than waiting. Seen by Anesthesia: Yes
[2017-11-03] MEDS ORDERED: KETAMINE 500 MG/10 ML INJECTION ONE (15:57)
[2017-11-03] MEDS ORDERED: FentaNYL 100 MCG/2 ML INJECTION ONE (15:57)
[2017-11-03] MEDS ORDERED: CLINDAMYCIN PB 600 MG/50 ML BAG IV SCH (16:00)
[2017-11-03] MEDS: LR 1,000 ML IV SCH ×2 (16:40→17:55)
[2017-11-03] MEDS ORDERED: MIDAZOLAM 2mg/2ml INJECTION ONE (16:51)
[2017-11-03] MEDS ORDERED: PROPOFOL 20 ML ONE (17:12)
[2017-11-03] MEDS ORDERED: EPHEDRINE 50mg/ml INJECTION ONE (17:15)
[2017-11-03] MEDS ORDERED: VANCOMYCIN 1,000 MG INJECTION ONE (17:40)
[2017-11-03] MEDS ORDERED: FentaNYL 100 MCG/2 ML INJECTION IVP PRN (17:44)
[2017-11-03] MEDS ORDERED: VANCOMYCIN 1,000 MG INJECTION IAR ONE (18:28)
[2017-11-03] MEDS ORDERED: BUPIVACAINE 0.25% (2.5mg/ml) PF 30ml INJECTION INFIL ONE (18:34)
--- NOTE | 2017-11-03 18:46 | Anesthesia Postoperative Note ---
- Date and Time Date: 11/02/17 Time: 18:45 - Status Patient Participated in Evaluation: Patient Participated in Person Vital Signs: Temperature 97.3 F 11/03/17 12:15 Pulse Rate 90 11/03/17 12:15 Respiratory Rate 14 11/03/17 12:15 Blood Pressure 175/79 H 11/03/17 12:15 Pulse Oximetry 94 11/03/17 12:15 Respiratory Function: Airway Patent Cardiovascular Function: Regular Pulse EKG: Sinus Rhythm Mental Status: Lethargic Pain Intensity: 0 Hydration: IV Infusing Complications During Recover: None Apparent - Follow-Up Instructions Instructions: Per Surgeon
[2017-11-03] MEDS ORDERED: HYDROCODONE/APAP 5mg/325mg TABLET PO PRN (19:19)
[2017-11-03] MEDS ORDERED: NON-FORMULARY MEDICATION 1 EACH EACH (Omeprazole Magnesium [Prilosec Otc] 20 MG) PO PRN (19:19)
[2017-11-03] MEDS ORDERED: NOZIN NASAL SWAB NAS ONE (19:19)
[2017-11-03] MEDS: NOZIN NASAL SWAB NAS SCH (19:25)
[2017-11-03] MEDS ORDERED: NON-FORMULARY MEDICATION 1 EACH EACH (Vit A/Vit C/Vit E/Zinc/Copper [Preservision Areds Ta PO SCH (21:00)
[2017-11-03] MEDS ORDERED: NS FLUSH BAG 500ml IV PRN (22:01)
[2017-11-03] MEDS: CLINDAMYCIN PB 600 MG/50 ML BAG IV SCH (22:23)
[2017-11-03] MEDS: MIRTAZAPINE 15 MG TABLET PO SCH (22:26)
[2017-11-04] MEDS: CLINDAMYCIN PB 600 MG/50 ML BAG IV SCH ×2 (04:12→11:20)
[2017-11-04] MEDS: NOZIN NASAL SWAB NAS SCH ×3 (04:13→21:48)
[2017-11-04] MEDS: MORPHINE SULFATE 2mg INJECTION IVP PRN ×2 (04:13→21:49)
[2017-11-04] MEDS ORDERED: OMEPRAZOLE 20 MG CAPSULE PO SCH (06:30)
--- NOTE | 2017-11-04 07:55 | Orthopedic Progress Note ---
Date: Date: 11/04/17 Time: 751 Subjective/Severity of Illness: Farnaz is resting comfortably. Her daughter in law is present in the room. Farnaz doesn't respond to my voice. Nurse indicates she has had poor PO intake since especially since surgery. Morphine was given at about 0400 this AM for pain control because she has not been able to take PO meds. Creatine is up to 1.1. She has had a T-max of 101.8 with known Coronavirus. Orthopedic Objective PO Vital signs: Temperature 99.9 F 11/04/17 03:47 Pulse Rate 96 11/04/17 03:47 Respiratory Rate 16 11/04/17 03:47 Blood Pressure 110/69 11/04/17 03:47 Pulse Oximetry 98 11/04/17 03:47 Height and Weight: Height 5 ft 2 in Weight 121 lb 11.123 oz Body Mass Index 22.2 - Constitutional General Appearance: Present: alert. Absent: orientated x1 - Respiratory Exam Present: non-labored - Cardiovascular Exam Present: pedal pulses intact - Abdominal Exam Absent: tenderness - Extremities Exam Extremities: Present: pulses intact - Surgical Site Incision: clean, dry, intact, Mepilex dressing intact, dressing intact - Integumentary Exam Present: pink, warm, dry - Neurological Exam Present: no deficits - Psychiatric Exam Present: alert. Absent: oriented - Labs Result Diagrams: 11/04/17 04:04 11/04/17 04:04 Abnormal lab results 11/04/17 11/04/17 Range/Units 04:04 04:04 RBC 3.45 L (4.00-5.20) M/MM3 Hgb 9.4 L D (12-16) GM/DL Hct 31.0 L D (36-46) % MCHC 30.3 L (31-37) GM/DL Neutrophils % (Manual) 85.0 H (33-66) % Lymphocytes % (Manual) 7.0 L (23-45) % Neutrophils # (Manual) 9.4 H (1.8-7.7) T/MM3 Lymphocytes # (Manual) 0.8 L (1-4.8) T/MM3 BUN 20.0 H (7-17) MG/DL Glucose 134 H (65-110) MG/DL Albumin 3.0 L (3.5-5.0) G/DL H & H 11/03/17 11/04/17 Range/Units 04:40 04:04 Hgb 11.8 L 9.4 L D (12-16) GM/DL Hct 37.7 31.0 L D (36-46) % Orthopedic Assessment and Plan (1) Closed subcapital fracture of right femur Status: Acute Qualifiers: Encounter type: initial encounter Qualified Code(s): S72.011A - Unspecified intracapsular fracture of right femur, initial encounter for closed fracture Assessment and Plan: s/p right hip Endoprosthesis by Dr. Alvarado on 11/03/17 Lovenox for DVT prevention mobilize as able with PT/OT continue medical management as per the hospitalist team - Anticoagulation Therapy Anticoagulation: Lovenox 40 mg SQ Daily x 30 days from day of surgery Hospital Course Summary Disclaimer: The visit summary below is not to be considered part of the above Progress Note. Hospital Course: Plan - 11/02/17 (Admission). Admit patient to inpatient to Dr. Guallpa for medical management of chronic conditions. Dr. Alvarado was consulted through the ED for orthopedic evaluation. Anticipate surgical repair of hip fracture on 11/03/17. Extensive review of records including medications from [facility] was performed. Will continue home medications. Given patient had unwitnessed fall with possible head injury, CT head and neck were obtained in ED and revealed no acute changes. Uncontrolled blood pressure in ED at 216/100 - unsure if patient received home lisinopril prior to arrival. Blood pressure improved with pain control. Continue to monitor blood pressure closely and will resume home lisinopril, Lasix and KCl. Monitor cardiac function closely with continuous pulse ox on telemetry given remote possibility of syncope. Fall more likely mechanical and secondary to poor safety awareness due to dementia and gait instability. Patient will need close supervision given dementia and poor safety awareness as she is at high risk for additional falls. Morphine 1-2mg PRN pain control. Monitor oximetry closely as she was noted to desat while in ED after receiving fentanyl. Oxygen as needed to maintain SAO2 > 90%, weaning as able. Patient does not use oxygen at home. Cough noted on admission. Patient remains afebrile and WBC stable (WBC 6.3). CXR unremarkable without focal infiltrate. Obtain respiratory panel and maintain respiratory precautions until resulted. Encourage incentive spirometry for pulmonary toileting. Patient on regular diet at [facility]. Will continue during hospitalization and make NPO after midnight on 11/03/11 in anticipation of surgery on 11/03/11. NS 100cc/ hr for hydration as clinical vascularly dry on exam with hypernatremia (Na 147). Patient receiving mighty shakes at [facility]. Will consult dietary for additional recommendations and continue dietary supplementation. Recheck CBC and BMP in AM to monitor blood counts, electrolytes and renal function. History of iron deficiency anemia. Hgb stable on admission (12.0). Will type and screen in AM in anticipation of surgery. Upon discharge, patient's care will be returned to her PCP, Dr. Ocampo. Patient wishes to be a DNR code status with paperwork on the chart. Plan - 11/03/17 Patient had a fever today up to 101.8. This may be secondary to Zaldivar virus. Blood cultures were obtained and lactate was obtained and was 0.7. Repeat lactate is pending. Chest x-ray shows a persistent left basilar infiltrate/ atelectasis that was present in August 2017. On exam, lungs are clear. I do not think she has pneumonia at this time, her fever is likely secondary to Zaldivar virus. Urinalysis was normal yesterday. We'll continue to monitor closely. Continue cautious IV fluids. Continue Haldol if needed for agitation. Plan for surgery later today for hip fracture repair Blood pressure is better controlled today. Family updated this morning.
--- NOTE | 2017-11-04 08:24 | XRay Report ---
Indication: S/P right zana arthroplasty PROCEDURE: XR pelvis w/ 1 view RT hip: Encounter: Initial Comparison: November 02, 2017 Findings: Postoperative changes of right femoral head replacement are seen. There is expected postoperative subcutaneous gas. No evidence of hardware failure or acute fracture. No retained radiopaque surgical instruments or sponges seen. Overlying material causing artifact. Impression: New right femoral head prosthesis without evidence of immediate complication. .
[2017-11-04] MEDS: 1/2 NS with KCL 20mEq 1,000 ML IV SCH ×3 (09:00→15:47)
--- NOTE | 2017-11-04 09:36 | XRay Report ---
Indication: cough, hypoxia PROCEDURE: XR chest 1V: Encounter: Initial Comparison: November 03, 2017 Findings: Persistent left lower lobe airspace consolidation with a small left effusion. No new areas of airspace disease. No pneumothorax. Heart size and mediastinal contours are stable. Pulmonary vascularity appears normal. Impression: Stable left lower lobe airspace consolidation and effusion. .
--- NOTE | 2017-11-04 09:44 | Operative Note ---
DATE OF PROCEDURE 11/03/2017 PREOPERATIVE DIAGNOSIS Right displaced subcapital femoral neck fracture. POSTOPERATIVE DIAGNOSIS Right displaced subcapital femoral neck fracture. PROCEDURE Right hip hemiarthroplasty. SURGEON Suhas Alvarado MD [employer] Shine Nugent PA-C ANESTHESIA Spinal. COMPLICATIONS None. DESCRIPTION OF PROCEDURE Mrs. Brooke and her right hip were identified in her hospital room bed. She was brought back to the operating suite and placed supine on the operating table after spinal anesthetic was administered. She was then placed in a lateral decubitus position with her right side up. The right lower extremity was prepped and draped in my normal sterile fashion. Time-out was performed. A posterior approach to the hip was utilized. Sharp dissection was carried down through the skin and subcutaneous tissue down to the muscle and fascia which was then split in line with the skin incision. The short external rotators were identified and detached. A capsulotomy was performed and fracture hematoma evacuated. The femoral neck osteotomy was performed and the neck fragments and the head were removed. The head was sized on a back table and we sized the acetabulum at a 47 mm head. The proximal femur was then prepared with cookie cutters followed by broaching to a size 7. We trialed with this. Leg length and stability were good. The canal was then prepared for cementing. A cement restrictor was placed. Cement was mixed on the back table and a size 7 stem was cemented at the proper anteversion. It was held in position as the cement cured. We then trialed again with a 47 head with a -3 neck at 132- degree angle. This felt good again. After thorough irrigation a final -3, 47 mm [place] chrome head was placed and final reduction performed. The capsule was repaired with #2 Ethibond. Joint cocktail was injected throughout the soft tissues. 1 gram of vancomycin powder was placed into the joint. The muscle- fascia was repaired with #1 Vicryl. The subcutaneous tissue was closed with 2- 0 Vicryl followed by a running 4-0 Monocryl in the skin followed by a sterile dressing. The drapes were removed. She was placed back into a supine position and taken to the recovery room under the care of Anesthesia. She tolerated the procedure well. There were no complications. [facility]
[2017-11-04] MEDS: FUROSEMIDE 20 MG TABLET PO SCH ×2 (11:17→11:42)
[2017-11-04] MEDS: ASPIRIN *EC* 81 MG TABLET PO SCH ×2 (11:17→11:42)
[2017-11-04] MEDS: MULTI-VIT + MINERAL (Opti-gen) TABLET PO SCH ×4 (11:18→21:49)
[2017-11-04] MEDS: ACETAMINOPHEN 325 MG TABLET PO PRN (11:18)
[2017-11-04] MEDS: LISINOPRIL 5 MG TABLET PO SCH ×2 (11:18→11:41)
[2017-11-04] MEDS: PANTOPRAZOLE 40 MG INJECTION IVP SCH (11:23)
[2017-11-04] MEDS: FLUTICASONE NASAL SPRAY 50mcg EA NOSTRIL SCH (11:24)
[2017-11-04] MEDS: ENOXAPARIN 40 MG/0.4 ML INJECTION SQ SCH (11:24)
[2017-11-04] MEDS ORDERED: ACETAMINOPHEN 650 MG SUPPOSITORY PR PRN (13:52)
[2017-11-04] MEDS ORDERED: RENAL DOSING - PHARMACY CONSULT MC ONE (14:03)
--- NOTE | 2017-11-04 14:09 | Progress Note ---
- Date 11/04/17 Subjective: The patient was seen in her room accompanied by one of her daughters. She has been very somnolent today and has not been eating or drinking. I was able to get her to wake up and answer a few questions. She states she only has pain in her feet, but I'm uncertain if that is accurate. She appears to be breathing comfortably on 2 L of oxygen. Because of her dementia and somnolence, she is not able to answer questions appropriately. She is able to follow some commands. Objective Vital signs: Temperature 97.5 F 11/04/17 12:00 Pulse Rate 86 11/04/17 12:00 Respiratory Rate 17 11/04/17 12:00 Blood Pressure 104/54 11/04/17 12:00 Pulse Oximetry 97 11/04/17 12:00 Height/Weight/BMI: Height 1.57 m Weight 56.4 kg Body Mass Index 22.2 Comments: MAXIMUM TEMPERATURE 99.9 axillary. Blood pressure 104/54, heart rate 86, O2 sat 97% on 2 L GEN-drowsy but arousable, no acute distress HEENT-clear anicteric, mouth is moist CV-regular rate and rhythm CHEST-clear to auscultation anteriorly ABD-soft, nontender with positive bowel sounds -Steven in place with decreased urine output overnight EXT-no edema, SCDs are on NEURO-she is able to move her hands and feet on command. No focal deficits noted. She is very somnolent SKIN-warm and dry and without rashes Results - Labs CBC & Chem 7: 11/04/17 04:04 11/04/17 04:04 Labs: Calcium, magnesium, phosphorus are all normal Differential shows 85% neutrophils and 3% bands Microbiology Results: Microbiology 11/03/17 07:33 Peripheral/Iv Start Blood Culture - Preliminary No Growth After 1 Day 11/03/17 07:35 Peripheral/Iv Start Blood Culture - Preliminary No Growth After 1 Day - Impressions Chest x-ray today shows persistent left lower lobe airspace consolidation and a small effusion. I have viewed the chest x-ray myself and agree. Assessment and Plan (1) Closed subcapital fracture of right femur Current visit: Yes Status: Acute (2) Unwitnessed fall Current visit: Yes Status: Acute (3) Hypernatremia Current visit: Yes Status: Acute Assessment and Plan: Assessment: 87-year-old pleasantly confused patient of Dr. Ocampo from [facility] who was admitted to Dr. Guallpa after being evaluated in the ED following an unwitnessed fall, resulting in a right subcapital femoral neck fracture and anticipated to under repair on 11/03/[address] Alvarado. Acute Medical Conditions: Right subcapital femoral neck fracture, acute - present on admission. Unwitnessed fall with possible head injury, acute. Hypernatremia (Na 147), acute - present on admission.-Resolved Fever 11/03/2017 Leukocytosis-11/03/2017 Zaldivar virus-present on admission Encephalopathy Elevated blood pressure-improved Persistent left basilar infiltrate/atelectasis, present on admission and in August 2017-uncertain if this is a new pneumonia versus persistent pneumonia. 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 Hypertension. Hyperlipidemia. LVH and cardiomegaly. CHF, unspecified. GERD. Iron deficiency anemia. Allergic rhinitis. 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 Macular degeneration. Chronic sinusitis. Generalized weakness. Gait instability - 2 person assist at baseline with walker. History of frequent falls. History of pneumonia. Plan - 11/03/17 Fever is better today, it's hard to know if that is because she is improving versus secondary to antibiotics she received yesterday perioperatively. She did have pneumonia 2 months ago treated with Levaquin which she tolerated well. Will restart Levaquin now for left lower lobe infiltrate which could be a new pneumonia. Because of the patient's excessive somnolence, will discontinue all narcotics. We'll give scheduled oral Tylenol and if she cannot take the oral will give suppositories. Encourage by mouth supplement shakes if she is not eating well. Hold lisinopril due to borderline low blood pressure. Increase IV fluids to 75 ML's an hour due to poor by mouth intake Repeat CBC and basic metabolic profile tomorrow. Discussed with the patient's daughter today. - Physician Narrative Narrative: Date: 11/04/17 Time: 1405 Hospital Course Summary Disclaimer: The visit summary below is not to be considered part of the above Progress Note. Hospital Course: Plan - 11/02/17 (Admission). Admit patient to inpatient to Dr. Guallpa for medical management of chronic conditions. Dr. Alvarado was consulted through the ED for orthopedic evaluation. Anticipate surgical repair of hip fracture on 11/03/17. Extensive review of records including medications from [facility] was performed. Will continue home medications. Given patient had unwitnessed fall with possible head injury, CT head and neck were obtained in ED and revealed no acute changes. Uncontrolled blood pressure in ED at 216/100 - unsure if patient received home lisinopril prior to arrival. Blood pressure improved with pain control. Continue to monitor blood pressure closely and will resume home lisinopril, Lasix and KCl. Monitor cardiac function closely with continuous pulse ox on telemetry given remote possibility of syncope. Fall more likely mechanical and secondary to poor safety awareness due to dementia and gait instability. Patient will need close supervision given dementia and poor safety awareness as she is at high risk for additional falls. Morphine 1-2mg PRN pain control. Monitor oximetry closely as she was noted to desat while in ED after receiving fentanyl. Oxygen as needed to maintain SAO2 > 90%, weaning as able. Patient does not use oxygen at home. Cough noted on admission. Patient remains afebrile and WBC stable (WBC 6.3). CXR unremarkable without focal infiltrate. Obtain respiratory panel and maintain respiratory precautions until resulted. Encourage incentive spirometry for pulmonary toileting. Patient on regular diet at [facility]. Will continue during hospitalization and make NPO after midnight on 11/03/11 in anticipation of surgery on 11/03/11. NS 100cc/ hr for hydration as clinical vascularly dry on exam with hypernatremia (Na 147). Patient receiving mighty shakes at [facility]. Will consult dietary for additional recommendations and continue dietary supplementation. Recheck CBC and BMP in AM to monitor blood counts, electrolytes and renal function. History of iron deficiency anemia. Hgb stable on admission (12.0). Will type and screen in AM in anticipation of surgery. Upon discharge, patient's care will be returned to her PCP, Dr. Ocampo. Patient wishes to be a DNR code status with paperwork on the chart. Plan - 11/03/17 Patient had a fever today up to 101.8. This may be secondary to Zaldivar virus. Blood cultures were obtained and lactate was obtained and was 0.7. Repeat lactate is pending. Chest x-ray shows a persistent left basilar infiltrate/ atelectasis that was present in August 2017. On exam, lungs are clear. I do not think she has pneumonia at this time, her fever is likely secondary to Zaldivar virus. Urinalysis was normal yesterday. We'll continue to monitor closely. Continue cautious IV fluids. Continue Haldol if needed for agitation. Plan for surgery later today for hip fracture repair Blood pressure is better controlled today. Family updated this morning.
[2017-11-04] MEDS ORDERED: LEVOFLOXACIN PB 750 MG/150 ML BAG IV SCH (14:15)
[2017-11-04] MEDS: ALBUTEROL/IPRATROPIUM 2.5mg-0.5mg/3ml NEB AEROSOL SCH ×3 (15:53→23:29)
[2017-11-04] MEDS: HALOPERIDOL 5 MG/ML INJECTION IVP PRN (16:41)
[2017-11-04] MEDS: ACETAMINOPHEN 325 MG TABLET PO SCH ×2 (17:00→21:48)
[2017-11-04] MEDS: MIRTAZAPINE 15 MG TABLET PO SCH (21:48)
[2017-11-05] MEDS: NOZIN NASAL SWAB NAS SCH ×2 (02:13→05:09)
[2017-11-05] MEDS: MORPHINE SULFATE 2mg INJECTION IVP PRN (02:13)
[2017-11-05] MEDS: 1/2 NS with KCL 20mEq 1,000 ML IV SCH (06:05)
[2017-11-05] MEDS: ALBUTEROL/IPRATROPIUM 2.5mg-0.5mg/3ml NEB AEROSOL SCH (07:37)
[2017-11-05] MEDS ORDERED: ALBUTEROL/IPRATROPIUM 2.5mg-0.5mg/3ml NEB AEROSOL PRN (09:41)
[2017-11-05] MEDS ORDERED: HALOPERIDOL 1 MG/0.5 ML ORAL LIQUID PO PRN (09:42)
--- NOTE | 2017-11-05 09:56 | Progress Note ---
- Date 11/05/17 Subjective: Farnaz is seen today in follow up. Her [id number] is at the bedside and reports Farnaz has had a difficult night with agitation. She has been angry, confused and swinging at staff. She received one time ativan this morning however continues to be restless. Family reports they are ready to precede with hospice care and withdrawal other care as she is not longer eating or taking in PO meds. Noted to be tachycardia 130 at time of auscultation. Objective Vital signs: Temperature 100.8 F H 11/05/17 07:46 Pulse Rate 134 H 11/05/17 07:46 Respiratory Rate 24 11/05/17 07:46 Blood Pressure 168/94 H 11/05/17 07:46 Pulse Oximetry 93 11/05/17 07:46 Rhythm: Sinus Tachycardia Height/Weight/BMI: Height 1.57 m Weight 56.4 kg Body Mass Index 22.2 - Constitutional Present: mild distress, well developed - Routine HEENT Exam Eye: Present: EOMI ENT: Present: mucous membranes moist, dentition normal - Routine Respiratory Exam Present: diminished air movement. Absent: wheezes - Routine Cardiovascular Exam Present: S1, S2, tachycardia (130). Absent: murmur - Routine Abdominal Exam Present: soft - Routine Extremities Exam Present: pulses intact - Routine Skin Exam Present: intact, dry, warm - Routine Neurological Exam Present: altered mental status - Routine Lymphatic Exam Lymphatic: Absent: adenopathy - Routine Psychiatric Exam Present: agitated, unable to assess Results - Labs CBC & Chem 7: 11/04/17 04:04 11/04/17 04:04 Microbiology Results: Microbiology 11/03/17 07:33 Peripheral/Iv Start Blood Culture - Preliminary No Growth After 2 Days 11/03/17 07:35 Peripheral/Iv Start Blood Culture - Preliminary No Growth After 2 Days Assessment and Plan (1) Closed subcapital fracture of right femur Current visit: Yes Status: Acute (2) Unwitnessed fall Current visit: Yes Status: Acute (3) Hypernatremia Current visit: Yes Status: Acute Assessment and Plan: Acute Medical Conditions: Right subcapital femoral neck fracture, acute - present on admission. Unwitnessed fall with possible head injury, acute. Hypernatremia (Na 147), acute - present on admission.-Resolved Fever 11/03/2017 Leukocytosis-11/03/2017 Zaldivar virus-present on admission Encephalopathy Elevated blood pressure-improved Persistent left basilar infiltrate/atelectasis, present on admission and in August 2017-uncertain if this is a new pneumonia versus persistent pneumonia. 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 Hypertension. Hyperlipidemia. LVH and cardiomegaly. CHF, unspecified. GERD. Iron deficiency anemia. Allergic rhinitis. 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 Macular degeneration. Chronic sinusitis. Generalized weakness. Gait instability - 2 person assist at baseline with walker. History of frequent falls. History of pneumonia. 11/05 30 Minutes of time was spent talking with family at the bedside, talking with KENNETH Pineda with hospice in case management. Plan is to change patient to inpatient hospice today. Work on decreasing patient 's agitation. Stop all other IV and oral medications. Will continue with sublingual Roxanol and Ativan scheduled as well as when necessary. Will leave Steven catheter in place at this time. Breathing treatments as needed. Plan will be to discharge patient to [facility] tomorrow on hospice care with reji [facility]cos 11/05/2017-7:30 PM-I reviewed this chart, the patient history, and the LASTING FLOORWORKER's/PA 's documented findings as above. We discussed and formulated the assessment and plan as above with the additions below.-Dr. Guallpa I saw the patient earlier this evening accompanied by multiple family members. The patient is nonverbal and sleeping. She does appear in pain especially when she has turned the nurses. The patient had a recent dose of morphine. Will give a when necessary dose now. Her family states she has seemed comfortable until now. On exam the patient appears to be in pain and has her arms up in her chest. She has facial grimacing. Chest is clear to auscultation. Cardiovascular reveals a borderline tachycardic rate with irregular rhythm. Abdomen is soft with hypoactive bowel sounds. Impression and plan Hospice care initiated. Continue morphine scheduled and when necessary. Continue lorazepam scheduled and when necessary. I've asked the nurses to call if this regimen is not keeping the patient comfortable. Plan for transfer to [facility] with hospice tomorrow. - Physician Narrative Narrative: Date: 11/05/17 Time: 0953 Hospital Course Summary Disclaimer: The visit summary below is not to be considered part of the above Progress Note. Hospital Course: Plan - 11/02/17 (Admission). Admit patient to inpatient to Dr. Guallpa for medical management of chronic conditions. Dr. Alvarado was consulted through the ED for orthopedic evaluation. Anticipate surgical repair of hip fracture on 11/03/17. Extensive review of records including medications from [facility] was performed. Will continue home medications. Given patient had unwitnessed fall with possible head injury, CT head and neck were obtained in ED and revealed no acute changes. Uncontrolled blood pressure in ED at 216/100 - unsure if patient received home lisinopril prior to arrival. Blood pressure improved with pain control. Continue to monitor blood pressure closely and will resume home lisinopril, Lasix and KCl. Monitor cardiac function closely with continuous pulse ox on telemetry given remote possibility of syncope. Fall more likely mechanical and secondary to poor safety awareness due to dementia and gait instability. Patient will need close supervision given dementia and poor safety awareness as she is at high risk for additional falls. Morphine 1-2mg PRN pain control. Monitor oximetry closely as she was noted to desat while in ED after receiving fentanyl. Oxygen as needed to maintain SAO2 > 90%, weaning as able. Patient does not use oxygen at home. Cough noted on admission. Patient remains afebrile and WBC stable (WBC 6.3). CXR unremarkable without focal infiltrate. Obtain respiratory panel and maintain respiratory precautions until resulted. Encourage incentive spirometry for pulmonary toileting. Patient on regular diet at [facility]. Will continue during hospitalization and make NPO after midnight on 11/03/11 in anticipation of surgery on 11/03/11. NS 100cc/ hr for hydration as clinical vascularly dry on exam with hypernatremia (Na 147). Patient receiving mighty shakes at [facility] T[facility]. Will consult dietary for additional recommendations and continue dietary supplementation. Recheck CBC and BMP in AM to monitor blood counts, electrolytes and renal function. History of iron deficiency anemia. Hgb stable on admission (12.0). Will type and screen in AM in anticipation of surgery. Upon discharge, patient's care will be returned to her PCP, Dr. Ocampo. Patient wishes to be a DNR code status with paperwork on the chart. Plan - 11/03/17 Patient had a fever today up to 101.8. This may be secondary to Zaldivar virus. Blood cultures were obtained and lactate was obtained and was 0.7. Repeat lactate is pending. Chest x-ray shows a persistent left basilar infiltrate/ atelectasis that was present in August 2017. On exam, lungs are clear. I do not think she has pneumonia at this time, her fever is likely secondary to Zaldivar virus. Urinalysis was normal yesterday. We'll continue to monitor closely. Continue cautious IV fluids. Continue Haldol if needed for agitation. Plan for surgery later today for hip fracture repair Blood pressure is better controlled today. Family updated this morning. 11/05 Minutes of time was spent talking with family at the bedside, talking with KENNETH Pineda with hospice in case management. Plan is to change patient to inpatient hospice today. Work on decreasing patient 's agitation. Stop all other IV and oral medications. Will continue with sublingual Roxanol and Ativan scheduled as well as when necessary. Will leave Steven catheter in place at this time. Breathing treatments as needed. Plan will be to discharge patient to [facility] tomorrow on hosp[facility] care with [facility]
[2017-11-05] MEDS: MORPHINE SULFATE 10mg/0.5ml ORAL LIQ SL SCH ×4 (10:14→21:01)
[2017-11-05] MEDS: LORazepam INTENSOL 1mg/0.5ml ORAL LIQUID PO SCH ×4 (10:15→21:01)
[2017-11-05] MEDS: ACETAMINOPHEN 325 MG TABLET PO SCH (10:38)
[2017-11-05] MEDS: ENOXAPARIN 40 MG/0.4 ML INJECTION SQ SCH (10:38)
[2017-11-05] MEDS: ASPIRIN *EC* 81 MG TABLET PO SCH (10:38)
[2017-11-05] MEDS: PANTOPRAZOLE 40 MG INJECTION IVP SCH (10:39)
[2017-11-05] MEDS: MULTI-VIT + MINERAL (Opti-gen) TABLET PO SCH (10:39)
[2017-11-05] MEDS: FUROSEMIDE 20 MG TABLET PO SCH (10:39)
[2017-11-05] MEDS: FLUTICASONE NASAL SPRAY 50mcg EA NOSTRIL SCH (10:39)
[2017-11-05] MEDS: MORPHINE SULFATE 10mg/0.5ml ORAL LIQ SL PRN (18:24)
[2017-11-05] MEDS: LORazepam INTENSOL 1mg/0.5ml ORAL LIQUID SL PRN (19:57)
[2017-11-06] MEDS: LORazepam INTENSOL 1mg/0.5ml ORAL LIQUID PO SCH ×3 (00:46→09:57)
[2017-11-06] MEDS: MORPHINE SULFATE 10mg/0.5ml ORAL LIQ SL SCH ×3 (00:46→09:56)
[2017-11-06 08:20] VITALS: BP 108/55; PULSE 83; RESP 16; TEMP 98; O2SAT 95
--- NOTE | 2017-11-06 10:06 | Discharge Summary ---
Discharge Information Date of admission: 11/02/17 10:22 Anticipated date of discharge: 11/06/17 Attending Physician: Velasquez Sterling MD Primary care physician: Kieran Ocampo MD Consults: [facility] - Discharge Diagnosis (1) Closed subcapital fracture of right femur Status: Acute (2) Unwitnessed fall Status: Acute (3) Hypernatremia Status: Acute Right subcapital femoral neck fracture, acute - present on admission. Unwitnessed fall with possible head injury, acute. Hypernatremia (Na 147), acute - present on admission.-Resolved Fever 11/03/2017 Leukocytosis-11/03/2017 Zaldivar virus-present on admission Encephalopathy Elevated blood pressure-improved Persistent left basilar infiltrate/atelectasis, present on admission and in August 2017-uncertain if this is a new pneumonia versus persistent pneumonia. White count and fever are better today, however she did receive 24 hours of IV antibiotics for prophylaxis after hip surgery Delirium with somnolence - Procedures Procedures: 11/03/17-Right hip hemiarthroplasty. Dr. Alvarado - Laboratory Labs: 11/04/17 04:04 11/04/17 04:04 - Microbiology Microbiology 11/03/17 07:35 Peripheral/Iv Start Blood Culture - Preliminary No Growth After 3 Days 11/03/17 07:33 Peripheral/Iv Start Blood Culture - Preliminary No Growth After 3 Days - Radiology Radiology: 11/02/17- CT scan cervical spine- No acute traumatic abnormality of the cervical spine. CT head-no intracranial abnormality or trauma Chest x-ray- Stable appearance of the chest with left basilar atelectasis and fluid. CT pelvis- Subcapital right femoral neck fracture. Pelvix Xray- Posttraumatic subcapital right femoral neck fracture. 11/03/17- Chest Xray- 1. Mild cardiomegaly. 2. Persistent left basilar atelectatic changes. Lumbar Spine Xray- 1. Dextroconvex scoliosis. 2. Disc space narrowing and endplate sclerosis and spurring from L1-2 through L5-S1 as described above. 3. No definite evidence for acute compression fracture deformity Pelvis x-ray- New right femoral head prosthesis without evidence of immediate complication. 11/04/17- chest [id number]-drl-[id number] left lower lobe airspace consolidation and effusion - Pathology None History of Present Illness HPI: Farnaz Brooke is a pleasantly confused 87-year-old female patient of Dr. Kieran Ocampo who has a known history of dementia. Due to her dementia, she is a poor historian. Prior medical records including ED records, EMS reports, PCP notes and nursing notes were thoroughly reviewed and contributed to her history. Her son is present at the bedside on exam and also contributes to her history. She currently resides at [facility] and sustained and unwitnessed fall this morning around 0730. She has chronic gait instability and is typically a 2 person assist. It is believed that she attempted to stand up on her own resulting in a fall and landed on her right side. Nursing reportedly heard her fall and found her on the floor with her walker nearby and on its side. She was unable to recall the fall and does not know if she hit her head or loss consciousness, but confusion and memory loss are not abnormal for her. She complained of pain but when asked where, she stated, "I don't know ". She denies any current headache, changes in vision, chest pain, shortness of breath, abdominal pain, nausea, vomiting or difficulty urinating. EMS transported to her [facility] for further evaluation. Upon arrival to the ED, blood pressure was elevated at 216/100. She has a known history of hypertension and it is believed that she had not received her morning medications prior to being assessed. Her blood pressure improved after receiving a total of 62.5 mcg of fentanyl for pain control. Imaging was obtained and revealed a right subcapital femoral neck fracture. Dr. Alvarado was consulted and recommended hospitalist admit and consult ortho. Dr. Guallpa was consulted and accepted her into inpatient status for further evaluation, IV pain control and surgical evaluation with anticipated surgical repair this afternoon. Her length of stay is expected to exceed more than 2 over nights. Labs in the ED were relatively unremarkable with the exception of hypernatremia (Na 147). UA was negative as well troponin. EKG revealed sinus arrhythmia with a rate of 64. CXR was reviewed by myself and revealed cardiomegaly without obvious focal infiltrate. Given her unwitnessed fall and possible head injury, CT head and C-spine were obtained and revealed no acute changes or fractures with chronic sinus disease and C4/5 and T1/2 listhesis noted. Objective Vital signs: Temperature 98 F 11/06/17 07:00 Pulse Rate 83 11/06/17 07:00 Respiratory Rate 16 11/06/17 07:00 Blood Pressure 108/55 11/06/17 07:00 Pulse Oximetry 95 11/06/17 07:00 Rhythm: Sinus Tachycardia Height/Weight/BMI: Height 1.57 m Weight 113.4 kg Body Mass Index 22.2 - Constitutional Present: no acute distress, well nourished - Routine HEENT Exam ENT: Present: mucous membranes moist - Routine Respiratory Exam Present: diminished air movement - Routine Cardiovascular Exam Present: RRR, S1, S2. Absent: murmur - Routine Abdominal Exam Present: soft, normoactive bowel sounds, non distended. Absent: tenderness - Routine Skin Exam Present: intact, dry, warm - Routine Neurological Exam Present: altered mental status - Routine Lymphatic Exam Lymphatic: Absent: adenopathy - Routine Psychiatric Exam Present: unable to assess Hospital Course This is a general summary of the patient's hospital course. For more details refer to the complete medical record. Hospital course: Plan - 11/02/17 (Admission). Admit patient to inpatient to Dr. Guallpa for medical management of chronic conditions. Dr. Alvarado was consulted through the ED for orthopedic evaluation. Anticipate surgical repair of hip fracture on 11/03/17. [facility]. Will continue home medications. Given patient had unwitnessed fall with possible head injury, CT head and neck were obtained in ED and revealed no acute changes. Uncontrolled blood pressure in ED at 216/100 - unsure if patient received home lisinopril prior to arrival. Blood pressure improved with pain control. Continue to monitor blood pressure closely and will resume home lisinopril, Lasix and KCl. Monitor cardiac function closely with continuous pulse ox on telemetry given remote possibility of syncope. Fall more likely mechanical and secondary to poor safety awareness due to dementia and gait instability. Patient will need close supervision given dementia and poor safety awareness as she is at high risk for additional falls. Morphine 1-2mg PRN pain control. Monitor oximetry closely as she was noted to desat while in ED after receiving fentanyl. Oxygen as needed to maintain SAO2 > 90%, weaning as able. Patient does not use oxygen at home. Cough noted on admission. Patient remains afebrile and WBC stable (WBC 6.3). CXR unremarkable without focal infiltrate. Obtain respiratory panel and maintain respiratory precautions until resulted. Encourage incentive spirometry for pulmonary toileting. Patient on regular diet at [facility]. Will continue during hospitalization and make NPO after midnight on 11/03/11 in anticipation of surgery on 11/03/11. NS 100cc/ hr for hydration as clinical vascularly dry on exam with hypernatremia (Na 147). Patient receiving mighty shakes at [facility] TID. Will consult dietary for additional recommendations and continue dietary supplementation. Recheck CBC and BMP in AM to monitor blood counts, electrolytes and renal function. History of iron deficiency anemia. Hgb stable on admission (12.0). Will type and screen in AM in anticipation of surgery. Upon discharge, patient's care will be returned to her PCP, Dr. Ocampo. Patient wishes to be a DNR code status with paperwork on the chart. 11/03/17 Patient had a fever today up to 101.8. This may be secondary to Zaldivar virus. Blood cultures were obtained and lactate was obtained and was 0.7. Repeat lactate is pending. Chest x-ray shows a persistent left basilar infiltrate/ atelectasis that was present in August 2017. On exam, lungs are clear. I do not think she has pneumonia at this time, her fever is likely secondary to Zaldivar virus. Urinalysis was normal yesterday. We'll continue to monitor closely. Continue cautious IV fluids. Continue Haldol if needed for agitation. Plan for surgery later today for hip fracture repair Blood pressure is better controlled today. Family updated this morning. 11/04/17 Family requested consultation with hospice earlier today. The hospice nurse did come and talk with the family. I then did come and talk with the family with the hospice nurse present. The patient had become very agitated this afternoon while receiving Levaquin. She does have history of allergy to Levaquin but it was just nausea. Levaquin was discontinued. The patient has reportedly been agitated off and on even prior to Levaquin. We did discuss options of continuing to treat her suspected pneumonia with a different antibiotic, versus just getting medications for comfort versus just continuing normal care post hip fracture repair. Family has decided they want to give her medications as needed for comfort. We'll try Tylenol first to minimize agitation or confusion, but if Tylenol is not adequate for pain, will give morphine as needed. They are also agreeable to Haldol or Ativan as needed for agitation. They have decided against any further antibiotics for pneumonia. They have decided against any further lab draws because they state she would not want a blood transfusion. They are leaning towards transfer back to the group home with hospice if symptoms are controlled. Discussed with hospice nurse and with the patient's nurse here at [facility]. 11/05 30 Minutes of time was spent talking with family at the bedside, talking with Miriam RN with hospice in case management. Plan is to change patient to inpatient hospice today. Work on decreasing patient 's agitation. Stop all other IV and oral medications. Will continue with sublingual Roxanol and Ativan scheduled as well as when necessary. Will leave Steven catheter in place at this time. Breathing treatments as needed. Plan will be to discharge patient to [facility] tomorrow on hospice care with [facility] 11/06/17- Discharge Farnaz is seen and examined today. Prior to discharge. She is just finished receiving a bath from nursing staff. She is very comfortable and resting, remains on room air without any distress. Nfraeqju-[id number]-myj is at the bedside along with [facility] hospice nurse. Everyone is in agreement that patient will be discharged today to [facility] under [facility]ice care. Hospice plans to continue on current pain medication regimen, Roxanol and Ativan scheduled as well as as needed along with Levsin and Haldol as needed. Time spent with patient: discharge greater than 30 minutes Resuscitation Status: Do Not Resuscitate Discharge Plan - Discharge Disposition Discharge Date: 11/06/17 Disposition: 04 To [facility] Home/Facility *Condition: Stable Reason For Visit (Visit label in EMR): Right hip fracture,Fall - Discharge Medications *Discharge Medications: New Haloperidol Oral Liq [Haldol Liquid] 2 mg PO Q4H PRN #30 ml PRN Reason: Agitation LORazepam INTENSOL [Ativan Intensol] 0.5 mg PO Q4H #30 ml LORazepam INTENSOL [Ativan Intensol] 0.5 mg SL Q2H PRN #30 ml PRN Reason: Anxiety/Air Hunger/Agitation Morphine Sulfate Oral Liq [Roxanol Oral Liq] 10 mg SL Q4H #30 syringe Morphine Sulfate Oral Liq [Roxanol Oral Liq] 10 mg SL Q2H PRN #30 syringe PRN Reason: Agitation/Air Hunger/Pain Albuterol/Ipratropium [Duoneb] 3 ml AEROSOL RTQID PRN #30 each PRN Reason: Wheezing Hyoscyamine Sulfate [Levsin-Sl] 0.125 mg SL Q4HR PRN #30 tab.subl PRN Reason: Abdominal Wall Spasms Discontinued Lisinopril [Prinivil] 5 mg PO BID Fluticasone Nasal [place] [Flonase] 1 spray EA NOSTRIL DAILY Vit C/E/Zn/Coppr/Lutein/Zeaxan [Preservision Areds 2 Softgel] 1 cap PO BID Aspirin [Aspirin EC] 81 mg PO DAILY Furosemide [Lasix] 10 mg PO DAILY Cholecalciferol (Vitamin D3) [Vitamin D3] 1,000 unit PO DAILY Mirtazapine [Remeron] 7.5 mg PO HS Ondansetron Tab [Zofran Po] 4 mg PO PRN PRN Reason: Nausea Potassium Chloride 10 meq PO DAILY #0 Polyvinyl Alcohol [Artificial Tears] 1 drop OP TID PRN PRN Reason: Prn Orders Vit A/Vit C/Vit E/Zinc/Copper [Preservision Areds Tablet] 1 tab PO BID Prilosec OTC (Omeprazole magnesium) 20 mg tablet,delayed release 20 mg PO DAILY PRN PRN Reason: Reflux - Discharge Packet/Instructions *Diet: Nothing by mouth therapeutic *Activity: bedrest *Pain Management/Treatment: as per hospice orders *Wound Care: N/A Additional Instructions: [place] under the care of [facility] *Expected Signs/Symptoms: Comfort care *Notify Physician if: N/A- On Hospice *During Business Hours Contact: Hospice *After Business Hours Contact: Hospice *Pending Lab/Results: No Pending Lab - Referrals/Follow Up - Patient Handouts - Dismissal Complete Discharge Instructions are:: Complete Physician Narrative - Narrative Physician: Velasquez Sterling MD Attestation Narrative: Date: 11/06/17 Time: 1040 Have independently interviewed and examined patient prior to discharge. Chart reviewed. Case discussed with my ASSURANCE ASSOCIATE. Care plan developed with supervision; agree with above. Resting comfortably in bed. Not responding to verbal stimuli. Daughter in law at bedside who does see significant improvement in her comfort. Lungs: decreased, no distress CV: regular MSE: somnolent Gen: appears comfortable Plan: Will discharge to [facility]. Continue with pain control. See orders for details.
--- NOTE | 2017-11-06 10:42 | Extended Care Facility Orders ---
Admission Orders Admit to:: [facility] Allergies/Adverse Reactions: Allergies ceftriaxone [From Rocephin] Allergy (Verified 11/03/17 06:23) diphenhydramine [From Benadryl] Allergy (Verified 11/03/17 06:23) levofloxacin [From Levaquin] Allergy (Verified 11/03/17 06:23) niacin Allergy (Verified 11/03/17 06:23) Sulfa (Sulfonamide Antibiotics) Allergy (Verified 11/03/17 06:23) Admitting Diagnosis: Right hip fracture,Fall Admitting Physician: Velasquez Sterling MD Attending Physician: Velasquez Sterling MD Code Status: Do Not Resuscitate Anticiapted Length of Stay: 30 days or less Rehab Potential: poor Rehab Prognosis: poor May use Facility Protocol or Standing Orders: Yes May have flu vaccine: Yes Halfway Certification: I certify that SNF services are required to be given on an Inpatient basis because of the patients need for residential care on a continuing basis for the condition(s) for which he/she received inpatient hospital services prior to his/her transfer to the SNF. SNF inpatient care is necessary for the following reasons Indication for [facility]way: Other (Hospice) - Additional Information In Event of Arrest: Do Not Start CPR Additional Orders: [facility] care [facility]
[2017-11-06] MEDS: LORazepam INTENSOL 1mg/0.5ml ORAL LIQUID SL PRN (12:47)
[2017-11-06] MEDS: MORPHINE SULFATE 10mg/0.5ml ORAL LIQ SL PRN (12:48)
== END 2017-11-06 13:20 | disposition hospice, home (50) | DRG 469 ==
LOC: ED 08:32 → SRG 10:22 → SUATTDRO 10:22 → SRG 11:18
PROVIDERS: ADMIT Internal Medicine; ATTEND Hospitalist